=== PATIENT | female | born 1970 | race Hispanic/Latino ===

== ENCOUNTER → 2017-01-02 | Outpatient (CLI) | payer OTHER ==
--- NOTE | 2017-01-02 17:14 | MAM ---
History: Well woman exam. Date of exam: 01/02/2017 Services provided: Bilateral full field digital screening mammography. CAD, the images were reviewed with R2 computer aided detection. FINDINGS: Glandular tissue is scattered glandular contour. Comparison with 2014 study. No dominant mass, architectural distortion or clustered microcalcification. IMPRESSION: Benign exam Recommendation: Routine annual mammography BIRAD CATEGORY: 2 BENIGN Electronically signed by: mAy Mcginnis MD 01/02/2017 5:12 PM CDT
== END | disposition home or self-care (01) ==
LOC: MAMMO 08:43
PROVIDERS: ATTEND Nurse Practitioner Family
DX: Z12.31 Encounter for screening mammogram for malignant neoplasm of breast (principal)

== ENCOUNTER → 2017-01-30 | Outpatient (CLI) | payer OTHER ==
--- NOTE | 2017-01-31 09:36 | RAD ---
EXAM DESCRIPTION: Forearm,Left CLINICAL HISTORY: 46 years, Female, PN IN LEFT ARM COMPARISON: None. FINDINGS: No fracture or dislocation. Some mild narrowing medially in the elbow. Slight irregularity of the distal lateral radius appears be an old injury. Radiocarpal joint space shows slight narrowing. IMPRESSION: No fracture or dislocation. Chronic appearing changes distal radius and medial elbow joint Electronically signed by: Omi Chavez MD 01/31/2017 9:35 AM CDT
== END | disposition home or self-care (01) ==
LOC: YCFC.O 14:08
PROVIDERS: ATTEND Nurse Practitioner Family
DX: M79.602 Pain in left arm (principal)

== ENCOUNTER → 2017-04-10 | Outpatient (CLI) | payer OTHER | END | disposition home or self-care (01) | LOC: YCFC.O 10:42 | PROVIDERS: ATTEND Anesthesiology Pain Medicine | DX: Z79.891 Long term (current) use of opiate analgesic (principal) ==

== ENCOUNTER → 2017-04-21 | Outpatient (CLI) | payer OTHER | END | disposition home or self-care (01) | LOC: YCFC.O 14:16 | PROVIDERS: ATTEND Anesthesiology Pain Medicine | DX: Z79.891 Long term (current) use of opiate analgesic (principal) ==

== ENCOUNTER 2017-04-23 17:14 | Emergency (ER) | payer OTHER ==
[2017-04-23] MEDS: HYDROcodone 10MG/APAP 325MG 1 EA TAB PO ONE ×2 (17:43→17:49)
[2017-04-23] MEDS ORDERED: ACETAMINOPHEN W/COD #3 TAB 1 EA TAB PO ONE (17:45)
[2017-04-23 17:56] VITALS: O2SAT 95
--- NOTE | 2017-04-23 18:21 | RAD ---
EXAM DESCRIPTION: Knee,Left Complete CLINICAL HISTORY: pain with fall today COMPARISON: None FINDINGS: AP, lateral and sunrise view of the left knee were submitted. There is no acute fracture. The patella is laterally dislocated in the sunrise view however projecting midline in the frontal view, please correlate with physical exam. Bone mineralization is within normal limits. There is no suprapatellar joint fluid collection. IMPRESSION: Lateral patellar dislocation noted in the sunrise view. Please correlate with physical exam. Electronically signed by: Tono Joe MD 04/23/2017 6:20 PM CDT
--- NOTE | 2017-04-23 18:44 | ED.PDOC ---
History of Present Illness - General Chief Complaint: Trauma Stated Complaint: fall Time Seen by Provider: 04/23/17 17:23 Source: patient Exam Limitations: no limitations - History of Present Illness Initial Comments: the patient is a 46-year-old [place] female presenting to the emergency room after a left knee injury. She slipped and twisted her knee coming off of a stool. She feels like the patella momentarily dislocated. She is in significant discomfort. Other than some mild swelling surrounding the knee there is no visible deformity noted. She does have diffuse tenderness to palpation. She does appear grossly neurovascularly intact distally. No other areas of pain.stress testing the knee is difficult given the level of pain. Timing/Duration: momentarily Severity: severe Improving Factors: immobilization Worsening Factors: movement Associated Symptoms: denies symptoms Allergies/Adverse Reactions: Allergies Aspirin Allergy (Verified 04/23/17 17:34) Home Medications: Ambulatory Orders Cyclobenzaprine HCl [Flexeril] 10 mg PO 07/22/14 Lisinopril 20 mg PO 07/22/14 Tramadol HCl [Ultram] 50 mg PO 07/22/14 Zolpidem Tartrate [Ambien] 10 mg PO 07/22/14 Review of Systems - Review of Systems Constitutional: States: no symptoms reported EENTM: States: no symptoms reported Respiratory: States: no symptoms reported Cardiology: States: no symptoms reported Gastrointestinal/Abdominal: States: no symptoms reported Genitourinary: States: no symptoms reported Musculoskeletal: States: see HPI Skin: States: no symptoms reported Neurological: States: no symptoms reported Endocrine: States: no symptoms reported All other Systems: No Change from Baseline Past Medical History (General) - Patient Medical History Hx Congestive Heart Failure: No Hx Hypertension: Yes Surgical History: other - Vaccination History Hx Tetanus, Diphtheria Vaccination: Yes Hx Influenza Vaccination: Yes Hx Pneumococcal Vaccination: No - Social History Hx Tobacco Use: No Hx Alcohol Use: No Hx Substance Use: No Hx Substance Use Treatment: No Hx Depression: No - Activities of Daily Living Hospice Agency (if applicable):: None - Female History Patient is a Female of Child Bearing Age (10 -59 yrs old): No Patient : No Family Medical History - Family History Father Family History: Unknown Hx Family Hypertension: Yes Hx Cardiac Disease: Yes Mother Hx Family Hypertension: Yes Physical Exam - Physical Exam General Appearance: Alert, No apparent distress Eye Exam: bilateral normal Ears, Nose, Throat: hearing grossly normal Neck: full range of motion Respiratory: no respiratory distress, no accessory muscle use Cardiovascular/Chest: normal peripheral pulses, no edema Peripheral Pulses: dorsalis pedis,right: 2+, dorsalis pedis,left: 2+, posterior tibialis,right: 2+, posterior tibialis,left: 2+ Gastrointestinal/Abdominal: other - obese Rectal Exam: deferred Back Exam: normal inspection Extremity: no pedal edema, no calf tenderness, normal capillary refill, other - see history of present illness 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 This is confirmed by x-ray. The patient is being placed in a knee immobilizer and will be placed on crutches with toe-touch weightbearing to the left lower extremity. She does need to see orthopedics for further plan and management. She can continue her Tylenol No. 3 for pain management as well as some Motrin or Aleve. ER warnings were given. She needs to have elected carefully to prevent further injury. Departure - Departure Clinical Impression: Patellar dislocation Qualifiers: Encounter type: initial encounter Laterality: left Qualified Code(s): S83.005A - Unspecified dislocation of left patella, initial encounter Disposition: Discharge to Home or Self Care Condition: Fair Departure Forms: ED Discharge - Pt. Copy, Patient Portal Self Enrollment Instructions: DI for Patellar Dislocation Activity: no pushing/pulling with affected limb Referrals: Alison Cannon NP [Primary Care Provider] - 1-2 Weeks Home Medications: Ambulatory Orders Cyclobenzaprine HCl [Flexeril] 10 mg PO 07/22/14 Lisinopril 20 mg PO 07/22/14 Tramadol HCl [Ultram] 50 mg PO 07/22/14 Zolpidem Tartrate [Ambien] 10 mg PO 07/22/14 Additional Instructions: the patient is a 46-year-old female presenting to the emergency room after a patellar dislocation on the left. This is confirmed by x-ray. The patient is being placed in a knee immobilizer and will be placed on crutches with toe-touch weightbearing to the left lower extremity. She does need to see orthopedics for further plan and management. She can continue her Tylenol No. 3 for pain management as well as some Motrin or Aleve. ER warnings were given. She needs to have elected carefully to prevent further injury.
[2017-04-23 19:11] VITALS: BP 108/71; TEMP 97.9
== END 2017-04-23 19:11 | disposition home or self-care (01) ==
LOC: ER 17:14
DX: S83.005A Unspecified dislocation of left patella, initial encounter (principal); I10 Essential (primary) hypertension; Z88.6 Allergy status to analgesic agent; X50.1XXA Overexertion from prolonged static or awkward postures, initial encounter; Y92.9 Unspecified place or not applicable

== ENCOUNTER → 2017-04-24 | Outpatient (CLI) | payer OTHER ==
--- NOTE | 2017-04-25 08:56 | MRI ---
EXAM DESCRIPTION: MRI left knee CLINICAL HISTORY: Medial knee pain. Fall injury COMPARISON: None. TECHNIQUE: Multiplanar, multisequence MR images of the left knee FINDINGS: Complete mid substance tear ACL. Osseous contusion posterior medial and lateral tibial epiphysis. The axial images show impaction as well of the epiphysis immediately beneath the PCL. There is a high-grade near complete tear of the PCL from its tibial attachment with fluid undermining. Complete disruption femoral origin MCL with ligament laxity. Fibular collateral ligament intact Tear of the posterior horn lateral meniscus, complete root tear. The remainder of the lateral meniscus intact. Lateral femorotibial chondral thinning and irregularity involving the weightbearing femoral condyle with partial-thickness fissuring No medial meniscal tear or medial femorotibial high-grade chondrosis. No patellofemoral high-grade chondrosis. Biceps femoris, popliteus and iliotibial band tendons are normal. Patellar and quadriceps tendons and tendons of the posterior medial knee are intact Large joint effusion with extensive surrounding periarticular soft tissue edema IMPRESSION: Complete ACL tear Impaction fracture posterior tibia in the midline subjacent to the PCL with near complete tibial attachment tear of the PCL Grade 3 proximal MCL tear, complete tear without ligament laxity Tear of the posterior horn lateral meniscus, complete root tear Electronically signed by: Nba Mcbride MD 04/25/2017 8:54 AM CDT
== END | disposition home or self-care (01) ==
LOC: RAD 13:02
PROVIDERS: ATTEND Orthopaedic Surgery
DX: M25.562 Pain in left knee (principal)

== ENCOUNTER → 2017-05-02 | Outpatient (CLI) | payer OTHER ==
--- NOTE | 2017-05-03 12:55 | CT ---
EXAM DESCRIPTION: CTA Lower Extremity CLINICAL HISTORY: 46 years Female, PATELLAR,DISLOCATION COMPARISON: MRI April 24, 2017 and a left knee series April 23, 2017 TECHNIQUE: CTA of the left lower extremity was performed with IV contrast including 3-D reconstructed images. FINDINGS: There is no evidence of vascular injury or stenosis in the left lower extremity. Specifically, the distal superficial femoral, popliteal and proximal trifurcation arteries are intact and of normal caliber. The anterior and posterior tibial arteries are patent at the level of the left ankle. There is a moderate to large size left knee effusion or hemarthrosis which contains a few tiny fat lobules. There is minimal lateral patellar subluxation. There is a tiny nondisplaced posterior tibial plateau fracture at the insertion site of the PCL. IMPRESSION: No evidence of vascular injury in the left lower extremity. Minimal lateral patellar subluxation and a small nondisplaced fracture involving the posterior tibial plateau at the PCL insertion site. Left knee joint effusion or hemarthrosis with a tiny fat component. Electronically signed by: Juma Jeter MD 05/03/2017 12:53 PM CDT Workstation: [id number]
== END | disposition home or self-care (01) ==
LOC: CT 13:58
PROVIDERS: ATTEND Orthopaedic Surgery
DX: S83 Dislocation and sprain of joints and ligaments of knee (principal)

== ENCOUNTER 2017-05-03 20:42 | Emergency (ER) | payer OTHER ==
[2017-05-03] MEDS ORDERED: ATROPINE 1 MG/10 ML SYG IV ONE ×2 (20:44→22:30)
[2017-05-03] MEDS ORDERED: EPINEPHrine INJ 0.1 MG/ML 10 ML SYG ONE (22:30)
[2017-05-03] MEDS ORDERED: AMIODARONE HCL 150 MG/3 ML VIAL IVPB ONE (22:30)
[2017-05-03] MEDS ORDERED: SODIUM BICARBONATE SYRINGE 50 MEQ/50 ML SYG IV ONE (22:30)
--- NOTE | 2017-05-03 23:48 | ED.PDOC ---
History of Present Illness - General Chief Complaint: Cardiac Respiratory Arrest Stated Complaint: cardiac arrest Time Seen by Provider: 05/03/17 23:44 Source: EMS Exam Limitations: clinical condition - History of Present Illness Initial Comments: Patient presents to the E.D. by EMS in cardiac arrest. Per EMS, patient was found barely responsive and breathing 12-15 times per minutes. She very quickly became unresponsive and ECG showed and idioventricular rhythm. See EMS notes. She was bradycardic and received atropine x one. She also had epinephrine 1 mg IV 1. She received defibrillation x one. Upon arrive to the E.D. , the patient is unresponsive, intubated with BVM being used, and CPR in progress. Timing/Duration: unsure Severity: severe Improving Factors: nothing Worsening Factors: nothing Allergies/Adverse Reactions: Allergies Aspirin Allergy (Verified 04/23/17 17:34) Home Medications: Ambulatory Orders Cyclobenzaprine HCl [Flexeril] 10 mg PO 07/22/14 Lisinopril 20 mg PO 07/22/14 Tramadol HCl [Ultram] 50 mg PO 07/22/14 Zolpidem Tartrate [Ambien] 10 mg PO 07/22/14 Review of Systems - Review of Systems Unable to Obtain Due To: intubated Past Medical History (General) - Patient Medical History Hx Seizures: No Hx Stroke: No Hx Dementia: No Hx Asthma: No Hx of COPD: No Hx Cardiac Disorders: No Hx Congestive Heart Failure: No Hx Pacemaker: No Hx Hypertension: Yes Hx Thyroid Disease: No Hx Diabetes: No Hx Gastroesophageal Reflux: No Hx Renal Disease: No Hx Cancer: No Hx of HIV: No Hx Hepatitis C: No Hx MRSA: No - Vaccination History Hx Tetanus, Diphtheria Vaccination: Yes Hx Influenza Vaccination: Yes Hx Pneumococcal Vaccination: No - Social History Hx Tobacco Use: No Hx Alcohol Use: No Hx Substance Use: No Hx Substance Use Treatment: No Hx Depression: No - Female History Patient : No Family Medical History - Family History Father Family History: Unknown Hx Family Hypertension: Yes Hx Cardiac Disease: Yes Mother Hx Family Hypertension: Yes Physical Exam - Physical Exam General Appearance: Other - unresponsive Eye Exam: bilateral other - fixed and dilated Respiratory: other - BVM being used Cardiovascular/Chest: other - no spontaneous heart beat Peripheral Pulses: radial,right: 0, radial,left: 0, femoral,right: 0, femoral, left: 0, popliteal,right: 0, popliteal,left: 0, dorsalis pedis,right: 0, dorsalis pedis,left: 0, posterior tibialis,right: 0, posterior tibialis,left: 0 Neurologic: other - no corneal reflix, pupils fixed and dilated, no response to sternal rub, no withdrawal from pain, Doll's eye present DTR: 0: Brachioradialis, left, Brachioradialis, right, Patellar, left, Patellar , right Skin Exam: mottled, pallor Progress - Progress Progress: 05/03/17 23:50 CPR continued with quality compression according to ACLS protocol. Patient received atropine 0.5 mg IV x one and epinephrine 1 mg IV x 2, amiodarone 300 mg IV x one, and one amp of bicarbonate IV x one. Patient was in PEA upon arrival and progressed to asystole. At this point, CPR had been going for over 40 minutes. The patient was pronounced at 8:50 pm. Family notified. Departure - Departure Clinical Impression: Cardiac arrest Disposition: Departure Forms: ED Discharge - Pt. Copy, Patient Portal Self Enrollment Referrals: Alison Cannon NP [Primary Care Provider] - 1-2 Weeks Home Medications: Ambulatory Orders Cyclobenzaprine HCl [Flexeril] 10 mg PO 07/22/14 Lisinopril 20 mg PO 07/22/14 Tramadol HCl [Ultram] 50 mg PO 07/22/14 Zolpidem Tartrate [Ambien] 10 mg PO 07/22/14
== END 2017-05-03 20:59 | disposition expired ==
LOC: ER 20:42
DX: I46.9 Cardiac arrest, cause unspecified (principal); I10 Essential (primary) hypertension; Z88.6 Allergy status to analgesic agent
CPT/HCPCS: 36416; 82948; J0282